=== PATIENT | female | born 1990 | race African-American/Black ===

== ENCOUNTER 2020-01-03 00:07 | Emergency (ER) | payer OTHER ==
[2020-01-03 00:46] VITALS: BP 120/94; TEMP 97.5; O2SAT 98
--- NOTE | 2020-01-03 01:24 | ED.PDOC ---
History of Present Illness - General Time Seen by Provider: 01/03/20 01:17 Source: patient, RN notes reviewed, Vital Signs reviewed Exam Limitations: no limitations - History of Present Illness Initial Comments: Patient is a 29-year-old -[place] female who presents with complaints of vaginal discharge, for which she was seen in [facility] this evening. Additionally patient believes that she is having sickle trait symptoms. Timing/Duration: 4-6 hours Severity: moderate Improving Factors: nothing Worsening Factors: nothing Associated Symptoms: cough, malaise, nausea/vomiting Review of Systems - Review of Systems Constitutional: States: see HPI, malaise, weakness. Denies: chills, fever EENTM: States: no symptoms reported. Denies: eye pain, blurred vision, double vision Respiratory: States: see HPI, cough, short of breath. Denies: stridor, wheezing Cardiology: States: no symptoms reported. Denies: chest pain, palpitations, syncope Gastrointestinal/Abdominal: States: nausea. Denies: abdominal pain, vomiting Musculoskeletal: States: back pain, joint pain. Denies: neck pain Skin: States: no symptoms reported. Denies: change in color, rash Neurological: States: weakness. Denies: headache, numbness Endocrine: States: no symptoms reported Hematologic/Lymphatic: States: no symptoms reported All other Systems: Reviewed and Negative Past Medical History (General) - Patient Medical History Hx Seizures: No Hx Stroke: No Hx Dementia: No Hx Asthma: No Hx of COPD: No Hx Cardiac Disorders: No Hx Congestive Heart Failure: No Hx Pacemaker: No Hx Hypertension: No Hx Thyroid Disease: No Hx Diabetes: Yes Hx Gastroesophageal Reflux: No Hx Renal Disease: No Hx Cancer: No Hx of HIV: No Hx Hepatitis C: No Hx MRSA: No Surgical History: tonsillectomy - Vaccination History Hx Tetanus, Diphtheria Vaccination: Yes Hx Influenza Vaccination: Yes Hx Pneumococcal Vaccination: Yes - Social History Hx Tobacco Use: No Hx Chewing Tobacco Use: No Hx Alcohol Use: No Hx Substance Use: No Hx Substance Use Treatment: No Hx Depression: No Feels Threatened In Home Enviroment: No Feels Threatened In a Relationship: No Hx Physical Abuse: No Hx Emotional Abuse: No Hx Suspected Abuse: No - Female History Patient is a Female of Child Bearing Age (10 -59 yrs old): Yes Patient : No Physical Exam - Physical Exam General Appearance: Alert, Anxious, Well Developed, Well Groomed, Well Hydrated Eye Exam: bilateral normal Ears, Nose, Throat: hearing grossly normal, normal ENT inspection, normal pharynx Neck: non-tender, full range of motion, supple Respiratory: chest non-tender, lungs clear, normal breath sounds, no respiratory distress Cardiovascular/Chest: normal peripheral pulses, no edema, no gallop, no JVD, no murmur, tachycardia Peripheral Pulses: radial,right: 2+, radial,left: 2+ Gastrointestinal/Abdominal: normal bowel sounds, non tender, soft Back Exam: normal inspection, no CVA tenderness, no vertebral tenderness Extremity: normal range of motion, non-tender, normal inspection 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 01/03/20 01:29 I requested patient provide a release of records so we can get her records from [facility]. Patient refused and then left AMA. Tyrel Lou M.D. #[id number] Departure - Departure Clinical Impression: Vaginal bleeding, Sickle cell trait Time of Disposition: 00:30 Disposition: Left Against Medical Advice Condition: Good Diet: resume usual diet Activity: increase activity as tolerated Referrals: CATALINA JACOBO [Primary Care Provider] - 1-2 Days
== END 2020-01-03 01:17 | disposition left against medical advice (07) ==
LOC: ER 00:07
DX: N93.9 Abnormal uterine and vaginal bleeding, unspecified (principal); D57.3 Sickle-cell trait; Z53.29 Procedure and treatment not carried out because of patient's decision for other reasons